=== PATIENT | male | born 1950 | race Caucasian/White ===

== ENCOUNTER 2019-01-01 14:26 | Inpatient (IN) | payer OTHER, MEDICAID ==
[2019-01-01] MEDS ORDERED: NS 1,000 ML IV ONE (14:36)
[2019-01-01] MEDS ORDERED: HYDROmorphONE/DILAUDID 2 MG/ML INJ IVP ONE ×3 (14:49→17:17)
--- NOTE | 2019-01-01 14:57 | EDPHY ---
HPI/HX/ROS/PE/MDM Narrative: CHIEF COMPLAINT: Epigastric pain HPI: The patient is a 68 y/o male with a history of pancreatitis arriving with his complaining of waxing and waning epigastric pain that began acutely about 1.5 hours prior to arrival. He felt mild epigastric soreness while eating an apple and by the time he finished he had developed severe, cramping, 7/10 pain in his epigastrium. Pain spikes in severity to 10/10 at times and when severe is associated with mild dyspnea. Pain was aggravated by jostling during the car ride down. He has some mild nausea as well. Symptoms feel similar to a prior episode of pancreatitis 5 years ago. He denies chest pain, vomiting, urinary symptoms, fever, diarrhea. REVIEW OF SYSTEMS: Aside from elements discussed in the HPI, a comprehensive 10-point review of systems was reviewed and is negative. PMH: Pancreatitis, cholecystectomy, hypertension? - not on meds SOCIAL HISTORY: Lives in [place] with his , who is at bedside. PHYSICAL EXAM: General:Patient is alert, in no acute distress. ENT:Eyes are normal to inspection. ENT inspection normal. Neck: Normal inspection. Full range of motion. Respiratory:No respiratory distress. Breath sounds normal bilaterally. Cardiovascular: Regular rate and rhythm. Strong peripheral pulses. Normal cap refill. Abdomen:The abdomen has epigastric tenderness to palpation. There are no peritoneal signs. Back: Normal to inspection. No tenderness to palpation. Skin: Normal color. No rash. Warm and dry. Extremities: Normal appearance. Full range of motion. Neuro: Oriented x3. Normal motor function. Normal sensory function. ED Course: This is a 68 y/o male with a history of pancreatitis who presents with a 1.5- hour history of acute onset severe epigastric pain that feels similar to his prior episode of pancreatitis. He appears uncomfortable and has epigastric tenderness on exam. Presentation consistent with likely pancreatitis, will also evaluate for cardiac causes. Plan for IV, labs, EKG, symptomatic management. 1L IV NS, 0.5mg IV Dilaudid ordered. The 12 lead EKG was interpreted by myself. Sinus mechanism, no ischemia. See hard copy and/or "tracemaster" electronic copy for interpretation. 1505: POC troponin 0.14. Chest x-ray ordered. Chest x-ray is negative [place] [address]. Spoke with hospitalist. Dr. Medrano accepts admission. Repeat troponin now zero. I asked lab to re-run original sample which now reads as zero as well. The earlier elevated troponin appears to represent a lab error. I called Dr. Medrano and updated her. - Data Points Imaging Results: Imaging Impressions Chest X-Ray 01/01/19 15:06 Impression: Stable negative chest. Imaging: I viewed and interpreted images myself Laboratory Results: Laboratory Results 01/01/19 15:30 01/01/19 15:30 01/01/19 01/01/19 01/01/19 15:30 15:30 14:50 WBC 11.45 10^3/uL H 10^3/uL (3.80-9.50) RBC 5.78 10^6/uL 10^6/uL (4.40-6.38) Hgb 16.3 g/dL g/dL (13.7-17.5) Hct 47.8 % % (40.0-51.0) MCV 82.7 fL fL (81.5-99.8) MCH 28.2 pg pg (27.9-34.1) MCHC 34.1 g/dL g/dL (32.4-36.7) RDW 14.7 % % (11.5-15.2) Plt Count 233 10^3/uL 10^3/uL (150-400) MPV 9.4 fL fL (8.7-11.7) Neut % (Auto) 74.9 % H % (39.3-74.2) Lymph % (Auto) 19.7 % % (15.0-45.0) L[place]kin % (Auto) 4.5 % % (4.5-13.0) Eos % (Auto) 0.3 % L % (0.6-7.6) Baso % (Auto) 0.3 % % (0.3-1.7) Nucleat RBC Rel Count 0.0 % % (0.0-0.2) Absolute Neuts (auto) 8.55 10^3/uL H 10^3/uL (1.70-6.50) Absolute Lymphs (auto) 2.26 10^3/uL 10^3/uL (1.00-3.00) Absolute Monos (auto) 0.52 10^3/uL 10^3/uL (0.30-0.80) Absolute Eos (auto) 0.04 10^3/uL 10^3/uL (0.03-0.40) Absolute Basos (auto) 0.04 10^3/uL 10^3/uL (0.02-0.10) Absolute Nucleated RBC 0.00 10^3/uL 10^3/uL (0-0.01) Immature Gran % 0.3 % % (0.0-1.1) Immature Gran # 0.04 10^3/uL 10^3/uL (0.00-0.10) Sodium 140 mEq/L mEq/L (135-145) Potassium 3.6 mEq/L mEq/L (3.5-5.2) Chloride 110 mEq/L mEq/L (97-110) Carbon Dioxide 23 mEq/l mEq/l (22-31) Anion Gap 7 mEq/L mEq/L (6-14) BUN 14 mg/dL mg/dL (7-23) Creatinine 1.0 mg/dL mg/dL (0.7-1.3) Estimated GFR > 60 Glucose 137 mg/dL H mg/dL (70-100) Calcium 9.2 mg/dL mg/dL (8.5-10.4) Total Bilirubin 0.4 mg/dL mg/dL (0.1-1.4) Conjugated Bilirubin 0.3 mg/dL mg/dL (0.0-0.5) Unconjugated Bilirubin 0.1 mg/dL mg/dL (0.0-1.1) AST 29 IU/L IU/L (17-59) ALT 40 IU/L IU/L (21-72) Alkaline Phosphatase 62 IU/L IU/L (38-126) POC Troponin I 0.14 ng/mL H ng/mL (0.00-0.08) Total Protein 7.0 g/dL g/dL (6.3-8.2) Albumin 4.2 g/dL g/dL (3.5-5.0) Lipase 01842 IU/L H IU/L (23-300) Medications Given: Discontinued Medications Hydromorphone HCl (Dilaudid) 0.5 mg IVP EDNOW ONE Stop: 01/01/19 14:50 Last Admin: 01/01/19 15:00 Dose: 0.5 mg Hydromorphone HCl (Dilaudid) 0.5 mg IVP EDNOW ONE Stop: 01/01/19 15:53 Last Admin: 01/01/19 15:56 Dose: 0.5 mg Sodium Chloride (Ns) 1,000 mls @ 0 mls/hr IV EDNOW ONE; Wide Open PRN Reason: Protocol Stop: 01/01/19 14:37 Last Admin: 01/01/19 15:00 Dose: 1,000 mls Point of Care Test Results: Chemistry 01/01/19 14:50 POC Troponin I 0.14 ng/mL H ng/mL (0.00-0.08) General Time Seen by Provider: 01/01/19 14:33 Initial Vital Signs: Initial Vital Signs Heart Rate 58 L 01/01/19 14:29 Respiratory Rate 24 H 01/01/19 14:29 Blood Pressure 179/84 H 01/01/19 14:29 O2 Sat (%) 93 01/01/19 14:29 O2 Delivery Mode Room Air O2 (L/minute) 2 Allergies/Adverse Reactions: No Known Allergies Allergy (Verified 01/01/19 17:19) Home Medications: Medication Instructions Recorded Ascorbic Acid [Vitamin C 500 mg 500 mg PO DAILY 01/01/19 (*)] Cholecalciferol (Vitamin D3) 5,000 unit PO DAILY 01/01/19 [Vitamin D3] Levothyroxine [Synthroid 100 mcg 100 mcg PO DAILY06 01/01/19 (*)] Multivitamins [Multivitamin (*)] 1 each PO DAILY 01/01/19 Departure - Departure Disposition: [facility] Inpatient Acute Clinical Impression: Acute pancreatitis Qualifiers: Pancreatitis type: other Acute pancreatitis complication: unspecified Qualified Code(s): K85.80 - Other acute pancreatitis without necrosis or infection Condition: Fair Report Scribed for: Delroy Kelsey Report Scribed by: Susy Tony Date of Report: 01/01/19 Time of Report: 14:57 Physician Review and Approval Statement: Portions of this note were transcribed by an ED scribe. I personally performed the history, physical exam, and medical decision making; and confirm the accuracy of the information in the transcribed note.
[2019-01-01 15:38] LABS: PLATELET COUNT 233 10^3/uL (150-400)
[2019-01-01] MEDS ORDERED: HYDROmorphONE/DILAUDID 1 MG/ML INJ ONE (15:54)
[2019-01-01] MEDS ORDERED: ONDANSETRON 4 MG/2 ML VIAL IVP PRN (19:53)
[2019-01-01] MEDS ORDERED: ACETAMINOPHEN 325 MG TAB PO PRN (19:53)
[2019-01-01] MEDS ORDERED: PROMETHAZINE HCL 25 MG/ML INJ IVP PRN (19:53)
[2019-01-01] MEDS: HYDROmorphONE/DILAUDID 1 MG/ML INJ IVP PRN ×3 (20:18→23:12)
--- NOTE | 2019-01-01 21:25 | GHP ---
[f rep st] HISTORY AND PHYSICAL DATE OF ADMISSION: 01/01/2019 CHIEF COMPLAINT: Epigastric pain. HISTORY OF PRESENT ILLNESS: The patient is a 68-year-old male, with a previous episode of pancreatitis in 2016. At that time, he was found to have gallbladder sludge but no stones, and he underwent cholecystectomy. During surgery he had extensive gallbladder adhesions as well as noted by Dr. Beltran to have bloody ascitic fluid. MRCP was negative other than the pancreatitis. There were no residual stones. He does not drink alcohol. There was a question of supplements potentially contributing to his pancreatitis. His is also concerned that he had had a traumatic fall just a couple days before this event. During that admission, per family, they were not 100% sure that the gallbladder was the problem, so they proceeded to remove it prophylactically. The patient now comes in with recurrence of epigastric pain starting at 1 o' clock this afternoon. He ate a normal breakfast without difficulty. At 1 o' clock, he initiated eating an apple and had some mild pain and by the time he was done eating the apple he was having 10/10 fluctuating pain[place] time they hit a bump in the car coming down the jostling would cause him to scream out in severe pain. This feels very similar to his previous episode of pancreatitis. PAST MEDICAL HISTORY: 1. Pancreatitis 2016 secondary to gallbladder versus other. 2. Kidney stone. 3. Inguinal hernia. PAST SURGICAL HISTORY: Cholecystectomy. MEDICATIONS: Please see computerized record for full detailed list. ALLERGIES: No known drug allergies. SOCIAL HISTORY: No smoking. No alcohol. He lives with his . REVIEW OF SYSTEMS: Complete review of systems obtained. Review of systems negative regarding constitutional, HEENT, GI, pulmonary, cardiovascular, , hematology, skin, musculoskeletal, endocrine, psych except for positives as in HPI. PHYSICAL EXAMINATION: GENERAL APPEARANCE: Well-nourished male, in no acute distress. VITAL SIGNS: Temperature is 37.1, pulse 78, blood pressure 145/81, satting 95% on room air. HEENT: Normal conjunctivae. Pupils round and react to light. ENT: Normal ears, nose. Hearing intact. Normal teeth. Oropharynx moist. NECK: Trachea midline. No thyromegaly. CHEST: Normal effort. Lungs are clear to auscultation bilaterally. CARDIOVASCULAR SYSTEM: Regular rhythm. No murmur. No lower extremity edema. ABDOMEN: Soft, nontender. No hepatosplenomegaly. SKIN: Warm, dry, intact. No rash. MUSCULOSKELETAL: No cyanosis or clubbing. Strength 5/5 upper and lower extremities. NEUROLOGIC: Cranial nerves intact. Normal sensation to light touch. PSYCH: Alert and oriented x3. Normal affect. Normal judgment. Normal memory. LABS: White count 11.45, hematocrit 47.8, platelets 233. Sodium 140, potassium 3.6, chloride 110, bicarb 23, BUN 14, creatinine 1.0, glucose 137. LFTs are negative[place] [address]. Chest x-ray is negative. EKG viewed by me, my personal interpretation, is normal sinus rhythm , no ST- or T-wave changes. MEDICAL RECORD REVIEW: He was hospitalized November 2015 with pancreatitis possibly due to gallbladder as discussed above. ASSESSMENT AND PLAN: 1. Idiopathic pancreatitis. He previously had a cholecystectomy. It sounds like on that admission they were not 100% sure that the gallbladder was the cause. He does not drink any alcohol. Magnetic resonance cholangiopancreatography at that time was negative except for anticipated pancreatitis. Will check triglycerides. His calcium is okay. We will check an abdominal ultrasound. He may need further workup depending on ultrasound results. 2. Morbid obesity. Body mass index is 40. Weight loss should be advised. 3. Hypothyroidism. Continue levothyroxine. CODE STATUS: Full. ADMISSION STATUS: 1. Will admit to inpatient. Anticipate greater than 2 midnights required for stabilization. 2. DVT prophylaxis. He is high risk. Will place on subcu Lovenox. /[id number]/MODL MTDD
[2019-01-01] MEDS: LORazepam 2 MG/ML INJ IVP PRN (23:12)
[2019-01-02] MEDS: HYDROmorphONE/DILAUDID 1 MG/ML INJ IVP PRN ×2 (01:37→03:34)
[2019-01-02] MEDS: LORazepam 2 MG/ML INJ IVP PRN (03:33)
[2019-01-02] MEDS: NS 1,000 ML IV SCH ×2 (03:36→22:08)
[2019-01-02] MEDS ORDERED: NALOXONE HCL 0.4 MG/ML INJ IVP PRN (04:51)
[2019-01-02] MEDS: HYDROmorphONE/DILAUDID 6 MG/30 ML PCA IV PRN (05:19)
[2019-01-02 05:38] LABS: PLATELET COUNT 201 10^3/uL (150-400)
[2019-01-02] MEDS: LEVOTHYROXINE 100 MCG TAB PO SCH (07:58)
[2019-01-02] MEDS: ENOXAPARIN 40 MG/0.4 ML SYR SC SCH ×2 (07:59→09:37)
--- NOTE | 2019-01-02 10:13 | PDMN ---
Medical Necessity Medical necessity: Pt meets IP criteria as of 01/01/2019 per and MCG M-250 ( pancreatitis); est los > 2 mn for ongoing tx and management of idiopathic pancreatitis with epigastric pain and serum lipase > 3 times the upper limit of normal (19315); requiring IVF, dilaudid REIMBURSEMENT CONSULTANT, IV antiemetics, and further work up.
--- NOTE | 2019-01-02 15:04 | ASMTCMCOM ---
CM Note CM Note Notes: Reviewed chart. Pt admitted for epigastric pain, acute pancreatitis. History includes pancreatitis in 2016 with hakeem, kidney stone, inguinal hernia, morbid obesity and hypothyroid. Pt is and lives with his in [place]. Anticipate pt will likely discharge home independently with family support when medically stable. CM will continue to follow for any potential needs. Discharge Plan: Likely independent Date Signed: 01/02/2019 03:04 PM Electronically Signed By:Shakila Fish RN
--- NOTE | 2019-01-02 15:49 | HOSPPROG ---
Hospitalist Progress Note Assessment/Plan: #Pancreatitis -Etiology unclear -Abd Exam non diagnostic -Lipase is decreasing #Abd Distention -No flatus, Last BM is yesterday, decreased bowel sounds #Pedal Edema #HTN #Hypothyroidism Plan: Decrease IVF for concerns for pedal edema. Will decrease to 100ml/hr, does not appear to be to handle more. He is urinating, mild concentrated noted Keep NPO Check CT A/P for further evaluation, other etiologies. more results pending results monitor BP Lovenox for DVT proph Inpatient Subjective: still with abd pain. worse distention Objective: Vital Signs Temp Pulse Resp BP Pulse Ox 37.2 C 107 H 16 167/104 H 92 01/02/19 15:39 01/02/19 15:39 01/02/19 15:39 01/02/19 15:39 01/02/19 15:39 Laboratory Results 01/02/19 05:25 01/02/19 05:25 01/01/19 01/02/19 01/03/19 05:59 05:59 05:59 Intake Total 1000 Output Total 350 320 Balance 650 -320 - Physical Exam Constitutional: no apparent distress Eyes: PERRL Ears, Nose, Mouth, Throat: moist mucous membranes, hearing normal Cardiovascular: regular rate and rhythym, edema (trace LE edema) Respiratory: no respiratory distress Gastrointestinal: tenderness (generalized worse in mid epigastric area.), distension, No normoactive bowel sounds, No siegel's sign, No guarding Skin: warm Neurologic: AAOx3 Psychiatric: interacting appropriately, not anxious, not encephalopathic Lymph, Heme, Immunologic: No petechiae ICD10 Worksheet Patient Problems: Problems Problem Status Onset Acute pancreatitis Acute
[2019-01-02] MEDS ORDERED: IOHEXOL 300 mgI/ML (OMNIPAQUE) 150 ML BTL IV ONE (16:06)
[2019-01-02] MEDS: hydrALAZINE 20 MG/ML VIAL IVP PRN (19:43)
--- NOTE | 2019-01-02 22:34 | CPEKG ---
Test Reason : OPEN Blood Pressure : / mmHG Vent. Rate : 060 BPM Atrial Rate : 060 BPM P-R Int : 156 ms QRS Dur : 097 ms QT Int : 468 ms P-R-T Axes : 056 -07 060 degrees QTc Int : 468 ms Sinus rhythm Borderline T wave abnormalities Confirmed by Delroy Kelsey ([id number]) on 01/02/2019 10:33:51 PM Referred By: Delroy Kelsey Confirmed By:Delroy Kelsey
--- NOTE | 2019-01-02 22:34 | CPEKG ---
Test Reason : OPEN Blood Pressure : / mmHG Vent. Rate : 057 BPM Atrial Rate : 057 BPM P-R Int : 167 ms QRS Dur : 091 ms QT Int : 457 ms P-R-T Axes : 036 -01 102 degrees QTc Int : 445 ms Sinus rhythm Probable left atrial enlargement Nonspecific T abnormalities, lateral leads Confirmed by Delroy Kelsey ([id number]) on 01/02/2019 10:33:59 PM Referred By: Delroy Kelsey Confirmed By:Delroy Kelsey
[2019-01-03] MEDS: hydrALAZINE 20 MG/ML VIAL IVP PRN ×2 (03:57→12:25)
[2019-01-03] MEDS: LORazepam 2 MG/ML INJ IVP PRN (04:36)
[2019-01-03] MEDS: LEVOTHYROXINE 100 MCG TAB PO SCH (04:37)
[2019-01-03 05:07] LABS: PLATELET COUNT 187 10^3/uL (150-400)
[2019-01-03] MEDS ORDERED: METOPROLOL TARTRATE 5 MG/5 ML INJ IVP ONE (05:28)
[2019-01-03] MEDS: ENOXAPARIN 40 MG/0.4 ML SYR SC SCH (08:19)
[2019-01-03] MEDS: NS 1,000 ML IV SCH ×2 (08:20→19:50)
--- NOTE | 2019-01-03 10:55 | HOSPPROG ---
Hospitalist Progress Note Assessment/Plan: 68yo M with history of pancreatitis here with same. 1. Acute pancreatitis: Idiopathic. CT from yesterday reviewed, no local complications. WBC higher but lipase sig improved. - Slowly advance diet, clears ordered - Pain control, wean dilaudid METAL RIVETER today if able - Check IgG4 level (referral) to eval autoimmune pancreatitis 2. Opioid induced constipation: Soft abdomen - Bowel regimen 3. HTN: BP elevated in setting of pain - Hydralazine PRN 4. Pedal edema: Mild, slowed down fluid yesterday. 5. Hypothyroidism: Home LT4 replacement VTE ppx: LMWH Code: full Diet: clears Dispo: Remain inpatient for IV pain control, not tolerating PO. Possibly dc in 1 -2 days pending clinical improvement Subjective: Abd pain better and less distended. Wondering why this has occurred. No n/v. Objective: Vital Signs Temp Pulse Resp BP Pulse Ox 37.1 C 92 18 162/87 H 91 L 01/03/19 08:00 01/03/19 08:00 01/03/19 08:00 01/03/19 08:00 01/03/19 08:00 Laboratory Results 01/03/19 04:55 01/03/19 04:55 01/02/19 01/03/19 01/04/19 05:59 05:59 05:59 Intake Total 1000 Output Total 350 1520 300 Balance 650 -1520 -300 - Physical Exam Constitutional: no apparent distress, obese Eyes: PERRL, anicteric sclera, EOMI Ears, Nose, Mouth, Throat: moist mucous membranes, hearing normal, ears appear normal, no oral mucosal ulcers Cardiovascular: regular rate and rhythym, no murmur, rub, or gallop, edema ( trace BLE) Respiratory: no respiratory distress, no rales or rhonchi, clear to auscultation Gastrointestinal: soft, non-tender abdomen, distension Genitourinary: no bladder fullness, no bladder tenderness, no renal bruits Skin: no rashes or abrasions, no fluctuance, no induration Musculoskeletal: full muscle strength, no muscle tenderness, normal joint ROM Neurologic: AAOx3, sensation intact bilaterally Psychiatric: interacting appropriately, not anxious, not encephalopathic, thought process linear ICD10 Worksheet Patient Problems: Problems Problem Status Onset Acute pancreatitis Acute
[2019-01-03] MEDS ORDERED: amLODIPine BESYLATE 5 MG TAB PO SCH (15:45)
[2019-01-03] MEDS: HYDROmorphONE/DILAUDID 6 MG/30 ML PCA IV PRN (16:09)
[2019-01-04] MEDS: hydrALAZINE 20 MG/ML VIAL IVP PRN ×3 (03:35→18:02)
[2019-01-04] MEDS: HYDROmorphONE/DILAUDID 6 MG/30 ML PCA IV PRN ×3 (04:21→22:28)
[2019-01-04] MEDS: LEVOTHYROXINE 100 MCG TAB PO SCH (05:57)
[2019-01-04] MEDS: NS 1,000 ML IV SCH ×2 (06:49→19:12)
[2019-01-04] MEDS ORDERED: BISACODYL 10 MG SUPP PR PRN (08:49)
[2019-01-04] MEDS ORDERED: MAGNESIUM HYDROXIDE 30 ML UDCUP PO PRN (08:49)
[2019-01-04] MEDS ORDERED: oxyCODONE IR 5 MG TAB PO PRN (08:49)
[2019-01-04] MEDS ORDERED: LACTULOSE 20 GM/30 ML UDCUP PO PRN (08:49)
--- NOTE | 2019-01-04 08:50 | HOSPPROG ---
Hospitalist Progress Note Assessment/Plan: 68yo M with history of pancreatitis here with same. 1. Acute pancreatitis: Idiopathic. CT reviewed, no local complications. 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 Trial dilaudid IV q2h and oxycodone q4h PRN - IgG4 level pending 2. Opioid induced constipation: Soft abdomen - Bowel regimen 3. HTN: BP elevated in setting of pain - Added amlodipine 01/03, increasing dose today. Hydralazine PRN 4. Pedal edema: Mild, slowed down fluids. 5. Hypothyroidism: Home LT4 replacement 6. AHRF: Requiring 2-[address] - Incentive spirometry, up in chair 7. MIKEY: Doesn't use CPAP VTE ppx: LMWH Code: full Diet: clears Dispo: Remain inpatient for IV pain control, not tolerating PO. Possibly dc in 1 -2 days pending clinical improvement Subjective: Abdominal pain better. Barely tolerated some water and ice yesterday. No n/v/d. Hasn't had BM. Objective: Vital Signs Temp Pulse Resp BP Pulse Ox 37.1 C 92 18 176/91 H 92 01/04/19 03:31 01/04/19 03:31 01/04/19 03:31 01/04/19 04:30 01/04/19 03:31 Laboratory Results 01/04/19 05:45 01/04/19 05:45 01/03/19 01/04/19 01/05/19 05:59 05:59 05:59 Intake Total 700 Output Total 1520 1900 Balance -1520 -1200 - Physical Exam Constitutional: no apparent distress, obese Eyes: PERRL, anicteric sclera, EOMI Ears, Nose, Mouth, Throat: moist mucous membranes, hearing normal, ears appear normal, no oral mucosal ulcers Cardiovascular: regular rate and rhythym, no murmur, rub, or gallop Respiratory: no respiratory distress, no rales or rhonchi, clear to auscultation Gastrointestinal: distension, No tenderness Genitourinary: no bladder fullness, no bladder tenderness, no renal bruits Skin: no rashes or abrasions, no fluctuance, no induration Musculoskeletal: full muscle strength, no muscle tenderness, normal joint ROM Neurologic: AAOx3, sensation intact bilaterally Psychiatric: interacting appropriately, not anxious, not encephalopathic, thought process linear ICD10 Worksheet Patient Problems: Problems Problem Status Onset Acute pancreatitis Acute
[2019-01-04] MEDS: POLYETHYLENE GLYCOL 3350 17 GM PKT PO SCH (09:39)
[2019-01-04] MEDS: amLODIPine BESYLATE 5 MG TAB PO SCH (09:39)
[2019-01-04] MEDS: SENNOSIDES/DOCUSATE SODIUM TAB PO SCH ×2 (09:39→22:08)
[2019-01-04] MEDS: ENOXAPARIN 40 MG/0.4 ML SYR SC SCH (09:39)
[2019-01-04] MEDS: HYDROmorphONE/DILAUDID 1 MG/ML INJ IVP PRN ×2 (11:55→12:40)
[2019-01-04] MEDS ORDERED: HYDROmorphONE/DILAUDID 1 MG/ML INJ IVP ONE (13:30)
[2019-01-04] MEDS ORDERED: NALOXONE HCL 0.4 MG/ML INJ IVP PRN (13:30)
[2019-01-04] MEDS: CALCIUM CARBONATE 500 MG CHEWABLE TAB PO PRN (19:12)
[2019-01-05] MEDS: NS 1,000 ML IV SCH ×3 (04:46→23:12)
[2019-01-05] MEDS: LEVOTHYROXINE 100 MCG TAB PO SCH (05:05)
[2019-01-05] MEDS: HYDROmorphONE/DILAUDID 6 MG/30 ML PCA IV PRN ×2 (06:55→12:53)
[2019-01-05] MEDS ORDERED: POTASSIUM CL 20 MEQ TAB PO ONE (08:08)
[2019-01-05] MEDS: SENNOSIDES/DOCUSATE SODIUM TAB PO SCH ×2 (08:48→20:01)
[2019-01-05] MEDS: amLODIPine BESYLATE 5 MG TAB PO SCH (08:48)
[2019-01-05] MEDS: POLYETHYLENE GLYCOL 3350 17 GM PKT PO SCH (08:51)
[2019-01-05] MEDS: ENOXAPARIN 40 MG/0.4 ML SYR SC SCH (08:53)
--- NOTE | 2019-01-05 10:12 | ASMTCMCOM ---
CM Note CM Note Notes: Pt is still recovering from pancreatitis, back on coin box inspector for pain control. Otherwise plan remains the same, will dc home w/support of when medically stable. CM available for any changes. DC Plan: Independent Date Signed: 01/05/2019 10:11 AM Electronically Signed By:Patricia León RN
[2019-01-05] MEDS ORDERED: HYDROmorphONE/DILAUDID 1 MG/ML INJ IVP ONE (12:56)
--- NOTE | 2019-01-05 12:58 | HOSPPROG ---
Hospitalist Progress Note Assessment/Plan: 68yo M with history of pancreatitis here with same. 1. Acute recurrent pancreatitis: Idiopathic. CT reviewed, no local complications. 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 Trial dilaudid IV q2h and oxycodone q4h PRN - IgG4 level pending 2. Opioid induced constipation: Soft abdomen - Bowel regimen 3. HTN: BP elevated in setting of pain - Added amlodipine 01/03, increased dose 01/04. Hydralazine PRN 4. Pedal edema: Mild, slowed down fluids. 5. Hypothyroidism: Home LT4 replacement 6. Acute hypoxia: Requiring 2L. Bibasilar atelectasis on CT. - Incentive spirometry, up in chair 7. MIKEY: Doesn't use CPAP, may need nocturnal O2 at discharge [place] 8. Hypokalemia: Due to poor PO. - Repleting, place on protocol VTE ppx: LMWH Code: full Diet: clears Dispo: Remain inpatient for IV pain control, not tolerating PO. Possibly dc in 1 -2 days pending clinical improvement Subjective: Abdominal pain slightly better, wanting to try and get off MACHINE MILKER today. Drank some water without n/v. Still no BM. Objective: Vital Signs Temp Pulse Resp BP Pulse Ox 37.4 C 87 18 183/92 H 91 L 01/05/19 12:08 01/05/19 12:08 01/05/19 12:08 01/05/19 12:08 01/05/19 12:08 Laboratory Results 01/05/19 05:02 01/05/19 05:02 01/04/19 01/05/19 01/06/19 05:59 05:59 05:59 Intake Total 700 1500 600 Output Total 1900 750 800 Balance -1200 750 -200 - Physical Exam Constitutional: no apparent distress, obese Eyes: PERRL, anicteric sclera Ears, Nose, Mouth, Throat: moist mucous membranes Cardiovascular: regular rate and rhythym, no murmur, rub, or gallop Respiratory: no respiratory distress, no rales or rhonchi, clear to auscultation Gastrointestinal: soft, non-tender abdomen, distension, other (decreased bowel sounds), No tenderness Genitourinary: no bladder fullness, no bladder tenderness, no renal bruits Skin: other (no abdominal ecchymoses) Musculoskeletal: full muscle strength Neurologic: AAOx3 Psychiatric: interacting appropriately ICD10 Worksheet Patient Problems: Problems Problem Status Onset Acute pancreatitis Acute
[2019-01-05] MEDS: oxyCODONE IR 5 MG TAB PO PRN ×3 (14:18→23:11)
[2019-01-05] MEDS: hydrALAZINE 20 MG/ML VIAL IVP PRN ×2 (17:26→23:11)
[2019-01-05] MEDS ORDERED: PROTOCOL POTASSIUM 1 DOSE MISC PRN (17:30)
[2019-01-05] MEDS: CALCIUM CARBONATE 500 MG CHEWABLE TAB PO PRN (18:33)
[2019-01-05] MEDS: HYDROmorphONE/DILAUDID 1 MG/ML INJ IVP PRN ×2 (19:06→23:42)
[2019-01-05] MEDS ORDERED: POTASSIUM CL 10 MEQ TAB PO ONE (20:37)
[2019-01-06] MEDS: oxyCODONE IR 5 MG TAB PO PRN ×4 (03:26→20:55)
[2019-01-06] MEDS: hydrALAZINE 20 MG/ML VIAL IVP PRN ×2 (05:22→11:54)
[2019-01-06] MEDS: LEVOTHYROXINE 100 MCG TAB PO SCH (05:23)
[2019-01-06] MEDS: SENNOSIDES/DOCUSATE SODIUM TAB PO SCH ×2 (08:25→20:54)
[2019-01-06] MEDS: POLYETHYLENE GLYCOL 3350 17 GM PKT PO SCH (08:25)
[2019-01-06] MEDS: ENOXAPARIN 40 MG/0.4 ML SYR SC SCH (08:25)
[2019-01-06] MEDS: amLODIPine BESYLATE 5 MG TAB PO SCH (08:25)
[2019-01-06] MEDS ORDERED: POTASSIUM CL 10 MEQ TAB PO ONE (08:38)
[2019-01-06] MEDS ORDERED: FUROSEMIDE 20 MG/2 ML VIAL IVP ONE (12:55)
--- NOTE | 2019-01-06 13:05 | HOSPPROG ---
Hospitalist Progress Note Assessment/Plan: 68yo M with history of pancreatitis here with same. First encounter, chart reviewed. 1. Acute recurrent pancreatitis: - Idiopathic. no local complications on CT. 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 Stop dilaudid IV q2h and oxycodone q4h PRN - IgG4 level pending 2. Opioid induced constipation: - Soft abdomen - Bowel regimen 3. HTN: - BP elevated - Added amlodipine 01/03, increased dose 01/04. Hydralazine PRN - dose of lasix - added lisinopril 5 01/06 - suspect he will need further adjusting 4. Pedal edema: - DC IVF - Lasix 20mg IV x 1 5. Hypothyroidism: - Home LT4 replacement 6. Acute hypoxia: - Requiring 2L. Bibasilar atelectasis on CT. - Incentive spirometry, up in chair 7. MIKEY: - Doesn't use CPAP, may need nocturnal O2 at discharge [place] 8. Hypokalemia: - Due to poor PO. - Repleting, place on protocol VTE ppx: LMWH Code: full Diet: regular Dispo: Remain inpatient Possibly dc in 1-2 days pending clinical improvement Subjective: Up in chair. Feels a bit better. Ate, feels bloated. Objective: Vital Signs Temp Pulse Resp BP Pulse Ox 37.6 C 86 18 209/99 H 95 01/06/19 11:34 01/06/19 11:34 01/06/19 11:34 01/06/19 11:54 01/06/19 11:34 Laboratory Results 01/05/19 05:02 01/06/19 05:08 01/05/19 01/06/19 01/07/19 05:59 05:59 05:59 Intake Total 1500 1486 Output Total 750 1150 700 Balance 750 336 -700 - Physical Exam Constitutional: appears nourished, obese, uncomfortable Eyes: PERRL, anicteric sclera, EOMI Ears, Nose, Mouth, Throat: moist mucous membranes, hearing normal, ears appear normal Cardiovascular: regular rate and rhythym, edema, No JVD Respiratory: no respiratory distress, no rales or rhonchi, reduced air movement Gastrointestinal: distension, No tenderness, No ascites, No guarding Skin: warm, normal color, No mottled Musculoskeletal: normal joint ROM, no joint effusions, generalized weakness Neurologic: AAOx3 Psychiatric: interacting appropriately, not anxious, not encephalopathic ICD10 Worksheet Patient Problems: Problems Problem Status Onset Acute pancreatitis Acute
[2019-01-06] MEDS: LISINOPRIL 5 MG TAB PO SCH (13:56)
[2019-01-07] MEDS: oxyCODONE IR 5 MG TAB PO PRN ×2 (03:54→11:21)
[2019-01-07] MEDS: LEVOTHYROXINE 100 MCG TAB PO SCH (06:27)
[2019-01-07 07:45] VITALS: BP 157/90
[2019-01-07] MEDS: POLYETHYLENE GLYCOL 3350 17 GM PKT PO SCH (08:50)
[2019-01-07] MEDS: ENOXAPARIN 40 MG/0.4 ML SYR SC SCH (08:50)
[2019-01-07] MEDS: SENNOSIDES/DOCUSATE SODIUM TAB PO SCH (08:50)
[2019-01-07] MEDS: amLODIPine BESYLATE 5 MG TAB PO SCH (08:51)
[2019-01-07] MEDS: LISINOPRIL 5 MG TAB PO SCH (08:51)
[2019-01-07] MEDS ORDERED: POTASSIUM CL 10 MEQ TAB PO ONE (10:03)
--- NOTE | 2019-01-07 14:59 | GDS ---
[f rep st] DISCHARGE SUMMARY DISCHARGE DIAGNOSES: 1. Acute recurrent pancreatitis. 2. Opioid-induced constipation. 3. Hypertension. 4. Pedal edema. 5. Hypothyroidism. 6. Acute hypoxia. 7. Obstructive sleep apnea. 8. Hypokalemia. STUDIES AND PROCEDURES DONE: 1. CT of the abdomen. 2. Abdominal ultrasound. PHYSICAL EXAM: GENERAL: The patient is alert. VITAL SIGNS: Afebrile at 36.7, pulse 84, respirator y rate is 18, blood pressure /90, saturating 94% on room air. I have seen and evaluated th e patient on the day of discharge. HOSPITAL COURSE: The patient is a 68-year-old male who presented to the emergency room with complain ts of abdominal pain. He was evaluated and diagnosed with: 1. Acute recurrent idiopathic pancreatitis. During this hospitalization, he received CT of the abdo men, as well as ultrasound with supportive management. IgG4 levels have been sent off and are pendin g at the time of disposition. He is currently tolerating a regular diet and his pain has completely resolved and he will follow up in the outpatient setting. 2. Opioid-induced constipation. This has resolved. 3. Hypertension. During this hospitalization, he was started on amlodipine, as well as lisinopril. He did receive a dose of diuretic, which assisted in his blood pressure management. His blood press ure is stable at the time of discharge and he will be continued on amlodipine and lisinopril. He manjinder l follow up with his primary care physician. 4. Pedal edema. This has resolved with diuretic therapy. 5. Hypothyroidism. Home medications have been continued. 6. Acute hypoxia. This has resolved and was in the setting of significant IV hydration. 7. Obstructive sleep apnea. I have instructed the patient to follow up in the outpatient setting an d receive a sleep study and discuss nocturnal oxygen needs with his primary care physician. He is cu rrently saturating appropriately on room air in the hospital setting. 8. Hypokalemia. This has been replaced. DISPOSITION: He will be discharged home independently. FOLLOWUP: Followup will be with his primary care physician, Kathrine Delgadillo. DISCHARGE MEDICATIONS: Please refer to the EMR form. I have provided the patient a prescription for lisinopril, oxycodone, amlodipine. I have not discontinued his other previously prescribed home med ications to the best of my knowledge. I spent greater than 35 minutes in the care, coordination, management of the patient's disposition. /[id number]/MODL
== END 2019-01-07 11:59 | disposition home or self-care (01) | DRG 440 ==
LOC: F2W 17:30 → F3E 22:39
PROVIDERS: ADMIT Internal Medicine; ATTEND Internal Medicine
DX: K85.00 Idiopathic acute pancreatitis without necrosis or infection (principal); K86.1 Other chronic pancreatitis; K59.03 Drug induced constipation; T50.7X5A Adverse effect of analeptics and opioid receptor antagonists, initial encounter; R09.02 Hypoxemia; E86.9 Volume depletion, unspecified; I10 Essential (primary) hypertension; E03.9 Hypothyroidism, unspecified; E66.01 Morbid (severe) obesity due to excess calories; G47.33 Obstructive sleep apnea (adult) (pediatric); E87.6 Hypokalemia
CPT/HCPCS: 82787-90; 84484-ER; 96374; J0360; J1170; J1650; J1940; J2060; J2405; Q9967